=== PATIENT | female | born 1950 | race Caucasian/White ===

== ENCOUNTER → 2016-11-26 | Outpatient (CLI) | payer OTHER ==
[~2016-11-26] VITALS: Ht 160 cm; Wt 81.9 kg
[~2016-11-26] MED LIST: ASA81BEC PO; CALCIUM 600 +1 EAC1 PO; CENTRUM SILVER1 EAC6 PO; FELODIPINE 5 MG5 M1 PO; FISH OIL 1,001000 M2 PO; LEXAPRO 10 MG T10 M1 PO; MAGNESIUM WITH ZINC PO; MAXZIDE-25 MG1 EACH PO; METFORMIN HCL500 MG PO; ZOCOR20 MG PO
--- NOTE | ~2016-11-26 | HPC ---
[address] [address] PAIN MANAGEMENT CONSULTATION Name: NICOLASA SHIRLEY Room #: REG ALEXX Alayna#: [id number] Admission: 11/26/16 Attend Phys: Troy Gomes DO Discharge: Date of : 48 Report #: [id number] THIS REPORT FOR: //name// CC: Troy Cui NP DATE OF SERVICE: 11/26/2016 REFERRING PHYSICIAN: Ginny Cui NP CHIEF COMPLAINT: Low back pain and bilateral lower extremity pain. HISTORY OF PRESENT ILLNESS: As you know, the patient is a 66-year-old female who was referred to our service by her neurosurgery team in 2016 where she underwent epidural injections under fluoroscopic guidance to address lumbar radicular symptoms. She reports an 80% improvement in overall pain with previous injection. She returns today in followup visit with pain level of 9/10. States pain is exacerbated with walking, bending, lifting and improves with reclining and heat as well as epidural injections. She states the pain is burning, sharp and numbness in sensation. She returns today requesting a lumbar epidural injection under fluoroscopic guidance to build on success of the previous intervention. As you are aware, the patient suffers from near critical spinal stenosis of the lumbar spine contributing to the patient's symptomology. She returns today requesting epidural injection under fluoroscopic guidance in hopes of improving pain further. ALLERGIES: CODEINE. CURRENT MEDICATIONS: Aspirin 81 mg once a day, omega-3 fish oil 1 tab per day, magnesium with zinc ____ mg once a day, calcium carbonate 1 tab per day, multivitamin 1 tab per day, Lexapro 10 mg per day, simvastatin 20 mg per day, triamterene/hydrochlorothiazide 37.5/25 mg once a day, felodipine 5 mg per day, metformin 500 mg 2 tabs p.o. b.i.d. SOCIAL HISTORY: The patient denies tobacco, alcohol, IV or illicit drug use. She is unaccompanied today. IMAGING: No new imaging available. PHYSICAL EXAMINATION: VITAL SIGNS: Blood pressure 121/71, pulse 74, respiratory rate 16, unlabored. The patient is 98% on room air. Height 5 feet 3 inch tall. Current weight 180.6 pounds, BMI calculated 32. GENERAL: Well-developed, well-nourished, well-hydrated exogenously obese 66-year-old female appearing her stated age. She is [place] [address] PAIN MANAGEMENT CONSULTATION Name: NICOLASA SHIRLEY Room #: REG CLI [facility]#: [id number] Admission: 11/26/16 Attend Phys: Troy Gomes DO Discharge: Date of : 48 Report #: [id number] at approximately 9/10. HEENT: Normocephalic, atraumatic. Pupils equal, round, reactive to light. Extraocular muscles are intact. EXTREMITIES: Show no clubbing, no cyanosis, no edema. MUSCULOSKELETAL: Lower extremity strength is symmetrical of 5/5, intact to light touch from L1 through S2 dermatomes. Deep tendon reflexes are symmetrical at patella and Achilles, diminished bilaterally. Seated straight leg raising negative. Supine straight leg raising positive. Eddie's test is negative. ASSESSMENT: 1. Symptomatic lumbar radiculopathy. 2. 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 3. Displacement of lumbar intervertebral disk with radiculopathy. 4. Lumbosacral spondylosis with radiculopathy. 5. Lumbar degeneration. 6. Chronic intractable pain. PLAN: 1. The patient returns today in followup visit indicating good efficacy with the previous epidural injection. She reports near 80% improvement in overall pain that lasted for nearly 2 months. She returns today requesting next in a series of epidural injections to build on success of previous intervention. She has been advised the risks and benefits of the procedure, states she understood and wished to proceed. 2. No medication changes were provided at today's visit. The patient will continue current medical therapy as previously prescribed. 3. The patient to return to our clinic on an as-needed basis for the third and final in the 6-month series of injections. PROCEDURE NOTE DESCRIPTION OF PROCEDURE: Lumbar epidural injection under fluoroscopic guidance. This is the first procedure of the second series that the patient is undergoing. After obtaining written consent, the patient was taken back to the fluoroscopy suite, placed in a prone position with pillow under the abdomen to decrease lumbar lordosis. The skin overlying the lumbosacral area was then prepped and draped in aseptic fashion. The lumbar vertebral interspace was then identified by AP fluoroscopy. The skin and subcutaneous tissue overlying the target site of injection was anesthetized with 3 mL 1% lidocaine. A 20-gauge ____-inch Tuohy needle was then advanced under fluoroscopic guidance towards the epidural space using a left paramedian approach. The epidural space [facility] [address] [place] [address] PAIN MANAGEMENT CONSULTATION Name: NICOLASA SHIRLEY Room #: REG ALEXX Catalan#: [id number] Admission: 11/26/16 Attend Phys: Troy Gomes DO Discharge: Date of : 48 Report #: [id number] was identified using loss of resistance to air technique. After negative aspiration for heme or cerebrospinal fluid, a total of 1 mL of Omnipaque was injected. A lumbar epidurogram was confirmed using both AP and lateral fluoroscopy. After negative aspiration for heme or cerebrospinal fluid, 5 mL of solution containing 2 mL 40 mg per mL 80 mg total triamcinolone, 3 mL of lidocaine 1% was injected in increments. Contrast spread was noted in posterior epidural space. The needle was then retracted approximately half way and needle tract flushed with 1 mL of 1% lidocaine. Needle was then removed. There were no apparent sensory or motor deficits in the lower extremity following the procedure. A sterile bandage was placed over the injection site. The heart rate, pulse, oximetry and blood pressure were continuously monitored after the procedure. There were no apparent complications. The patient tolerated the procedure well and was carefully escorted to the recovery room in stable condition. There were no apparent complications. After meeting discharge criteria, the patient was then discharged home. By: [id number] Troy Gomes DO /nt
[2016-11-26 09:03] VITALS: BP 121/71
== END | disposition home or self-care (01) ==
LOC: PAIN 08-20 08:51
DX: M51.16 Intervertebral disc disorders with radiculopathy, lumbar region (principal); M47.27 Other spondylosis with radiculopathy, lumbosacral region; G89.29 Other chronic pain; M48.06 Spinal stenosis, lumbar region

== ENCOUNTER → 2017-02-12 | Outpatient (CLI) | payer OTHER ==
[~2017-02-12] VITALS: Ht 157.5 cm; Wt 81.8 kg
[~2017-02-12] MED LIST changes: +JANUVIA100 MG PO
--- NOTE | ~2017-02-12 | HPC ---
[facility] [place] [address] PAIN MANAGEMENT CONSULTATION Name: NICOLASA SHIRLEY Room #: REG ALEXX Kiana.#: [id number] Admission: 02/12/17 Attend Phys: Troy Gomes DO Discharge: Date of : 48 Report #: [id number] THIS REPORT FOR: //name// CC: Troy Cui NP DATE OF SERVICE: 02/12/2017 NURSE PRACTITIONER: Ginny Cui NP CHIEF COMPLAINT: Low back pain, bilateral lower extremity pain. HISTORY OF PRESENT ILLNESS: As you know, the patient is a 66-year-old female referred to our service by her neurosurgery team back in 2015 where she underwent epidural injection under fluoroscopic guidance to address lumbar radicular symptoms. She reported an 80% improvement in overall pain with previous injection. She returns today with pain level of 7/10, states her pain is constant, burning and sharp in sensation, exacerbated with walking, bending, lifting, improves with recliners, heat and cold compresses and epidural injections. She indicates no new injury, no new trauma that may have led to progression of symptoms. She states her symptoms are very similar to previous evaluations. She has returned requesting epidural injection. ALLERGIES: CODEINE. CURRENT MEDICATIONS: Metformin, felodipine, triamterene/hydrochlorothiazide, simvastatin, Lexapro, multivitamin, calcium carbonate, magnesium with zinc, aspirin, Januvia. SOCIAL HISTORY: The patient denies tobacco, alcohol, IV or illicit drug use. She is unaccompanied today. IMAGING: No imaging available. PHYSICAL EXAMINATION: VITAL SIGNS: Blood pressure 137/63, pulse 76, respiratory rate 16, unlabored. The patient is 98% on room air, height 5 feet 2 inches tall, weight 180.3 pounds, BMI calculated 33.0. GENERAL: Well developed, well nourished, well-hydrated exogenously obese 66-year-old female appearing her stated age, placing pain score today 7/10. HEENT: Normocephalic, atraumatic. Pupils equal, round, reactive to light. Extraocular muscles are intact. EXTREMITIES: Show no clubbing, no cyanosis, no edema. MUSCULOSKELETAL: Lower extremity strength remains symmetrical 5/5, intact to light touch from L1 through S2 dermatomes. Seated straight leg raising [facility] [address] [place] [address] PAIN MANAGEMENT CONSULTATION Name: NICOLASA SHIRLEY Room #: REG [facility]#: [id number] Admission: 02/12/17 Attend Phys: Troy Gomse DO Discharge: Date of : 48 Report #: [id number] negative. Supine straight leg raising positive. Eddie test negative. Modified Gaenslen's positive for axial low back pain. Ankle clonus negative. Babinski is negative. ASSESSMENT: 1. Symptomatic lumbar radiculopathy. 2. 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 3. Displacement of lumbar intervertebral disk with radiculopathy. 4. Lumbosacral spondylosis with radiculopathy. 5. Lumbar facet arthropathy. 6. Lumbar degeneration. 7. Chronic intractable pain. PLAN: 1. The patient returns today in followup visit requesting to undergo next in the series of epidural injections under fluoroscopic guidance. The patient has done very well with previous epidural injections. She is hopeful to see similar improvement today. She has been advised of the risks and the benefits of this procedure. These risks include but are not necessarily limited to bleeding, bruising, infection, worsening pain, no relief of pain, also risk of temporary or permanent muscle weakness, temporary or permanent nerve damage, possible paralysis and . The patient states understood and wished to proceed. 2. No medication changes were made at today's visit. The patient will continue current medical therapy as previously prescribed. 3. The patient will return to our clinic on an as needed basis for possible next in the series of epidural injections. PROCEDURE NOTE DESCRIPTION OF PROCEDURE: Lumbar epidural steroid injection under fluoroscopic guidance. This is the second procedure of the second series that the patient is undergoing. After obtaining written consent, the patient was taken back to the fluoroscopy suite, placed in a prone position with pillow under the abdomen to decrease lumbar lordosis. The skin overlying the lumbosacral area was then prepped and draped in aseptic fashion. The lumbar vertebral interspace was then identified by AP fluoroscopy. The skin and subcutaneous tissue overlying the target site of injection was anesthetized with 3 mL 1% lidocaine. A(n) 20-gauge 3-1/2 inch Tuohy needle was then advanced under fluoroscopic guidance towards the epidural space using a left paramedian approach. The epidural space was identified using loss of resistance to air technique. After negative aspiration for heme or cerebrospinal fluid, a total of 1 mL of [address] [address] PAIN MANAGEMENT CONSULTATION Name: NICOLASA SHIRLEY Room #: REG ALEXX Catalan#: [id number] Admission: 02/12/17 Attend Phys: Troy Gomes DO Discharge: Date of : 48 Report #: [id number] Omnipaque was injected. A lumbar epidurogram was confirmed using both AP and lateral fluoroscopy. After negative aspiration for heme or cerebrospinal fluid, 5 mL of a solution containing 2 mL 40 mg per mL, 80 mg total triamcinolone 3 mL of lidocaine 1% was injected in increments. Contrast spread was noted post epidural space. The needle was then retracted approximately half way and needle tract flushed with 1 mL of 1% lidocaine. Needle was then removed. There were no apparent sensory or motor deficits in the lower extremity following the procedure. A sterile bandage was placed over the injection site. The heart rate, pulse, oximetry and blood pressure were continuously monitored after the procedure. There were no apparent complications. The patient tolerated the procedure well and was carefully escorted to the recovery room in stable condition. There were no apparent complications. After meeting discharge criteria, the patient was then discharged home. By: [id number] Troy Gomes DO /nt
[2017-02-12 08:09] VITALS: BP 137/63
== END ==
LOC: PAIN 06:48
DX: M51.16 Intervertebral disc disorders with radiculopathy, lumbar region (principal); M47.26 Other spondylosis with radiculopathy, lumbar region; G89.29 Other chronic pain; M48.06 Spinal stenosis, lumbar region; Z79.899 Other long term (current) drug therapy; Z88.8 Allergy status to other drugs, medicaments and biological substances

== ENCOUNTER → 2017-06-10 | Outpatient (CLI) | payer OTHER ==
[~2017-06-10] VITALS: Ht 157.5 cm; Wt 83.1 kg
[~2017-06-10] MED LIST changes: +LANTUS SUBQ
--- NOTE | ~2017-06-10 | HPC ---
[facility] [place] [address] PAIN MANAGEMENT CONSULTATION Name: NICOLASA SHIRLEY Room #: REG CLSolange Alayna#: [id number] Admission: 06/10/17 Attend Phys: Troy Gomes DO Discharge: Date of : 48 Report #: [id number] THIS REPORT FOR: //name// CC: Troy Garcia DATE OF SERVICE: 06/10/2017 CHIEF COMPLAINT: Low back pain, bilateral lower extremity pain and paresthesias. HISTORY OF PRESENT ILLNESS: As you know, the patient is a very pleasant 67-year-old female who returns today in followup visit per the request of her neurosurgery team to undergo next in the series of epidural injections under fluoroscopic guidance. The patient reports about 50% improvement in overall pain with the last injection, this lasted for about 6-8 weeks. She returns today in followup visit for next in the series of epidural injections. She denies new injury, new trauma that may have led to progression of symptoms. She denies any changes in her medical history since our last visit. ALLERGIES: CODEINE. CURRENT MEDICATIONS: Lantus, aspirin, omega 3 fish oil, magnesium, calcium carbonate, multivitamin, escitalopram, simvastatin, triamterene/hydrochlorothiazide, felodipine, and metformin. SOCIAL HISTORY: The patient denies tobacco, alcohol, IV or illicit drug use. She is unaccompanied today. IMAGING: No new imaging available. PHYSICAL EXAMINATION: VITAL SIGNS: Blood pressure 120/65, pulse 66 and respiratory rate 20, unlabored. The patient is 97% on room air, height 5 feet 2 inches tall, weight 183.2 pounds, BMI calculated at 33.5. GENERAL: Well developed, well nourished, well-hydrated exogenously obese 67-year-old female appearing stated age, placing current pain score 9/10. HEENT: Normocephalic, atraumatic. Pupils equal, round, reactive to light. Extraocular muscles are intact. EXTREMITIES: Show no clubbing, no cyanosis, no edema. MUSCULOSKELETAL: Seated straight leg raising negative. Supine straight leg raising positive. Eddie test negative. Modified Gaenslen's positive for axial low back pain. Gait mildly antalgic. Muscle bulk and tone equal and symmetrical in lower extremities. ASSESSMENT: [address] [address] PAIN MANAGEMENT CONSULTATION Name: NICOLASA SHIRLEY Room #: REG ALEXX Catalan#: [id number] Admission: 06/10/17 Attend Phys: Troy Gomes DO Discharge: Date of : 48 Report #: [id number] 1. Symptomatic lumbar radiculopathy. 2. Near critical spinal stenosis of lumbar spine. 3. Displacement of lumbar intervertebral disk with radiculopathy. 4. Lumbosacral spondylosis with radiculopathy. 5. Facet arthropathy of the lower lumbar spine. 6. Neural foraminal stenosis of lumbar spine. 7. Lumbar degeneration. 8. Chronic intractable pain. PLAN: 1. The patient returns today in followup visit having noted approximately 50% improvement in overall pain lasting for nearly 6-8 weeks. She returns today in followup visit per the request of her neurosurgery team to undergo the next in a series of epidural injections. The patient and I did discuss at length today the risks and benefits, states she understood and wished to proceed. 2. The patient is to return to see her neurosurgery team at her earliest convenience. The patient is concerned that 50% improvement in symptoms with epidural injections is not significant enough for her to continue these type of treatments. I have recommended that if she wishes to move to more aggressive treatment to contact her neurosurgery physician and be seen in return consultation. The patient does have near critical stenosis and will likely need decompression and fusion. We will be available to see her back in followup visit if requested to try the next in the series of epidural injections. PROCEDURE NOTE DESCRIPTION OF PROCEDURE: L5-S1 left paramedian epidural steroid injection under fluoroscopic guidance. This is the third procedure of the second series that the patient is undergoing. After obtaining written consent, the patient was taken back to the fluoroscopy suite, placed in a prone position with pillow under the abdomen to decrease lumbar lordosis. The skin overlying the lumbosacral area was then prepped and draped in aseptic fashion. The L5-S1 vertebral interspace was then identified by AP fluoroscopy. The skin and subcutaneous tissue overlying the target site of injection was anesthetized with 3 mL 1% lidocaine. A 20-gauge Tuohy needle was then advanced under fluoroscopic guidance towards the epidural space using a left paramedian approach. The epidural space was identified using loss of resistance to air technique. After negative aspiration for heme or cerebrospinal fluid, a total of 1 mL of Omnipaque was injected. A lumbar epidurogram was confirmed using both AP and lateral fluoroscopy. After negative aspiration for heme or cerebrospinal fluid, 5 mL of a solution containing 2 mL 40 mg per mL, 80 mg total triamcinolone, 3 mL of lidocaine 1% was injected in increments. Contrast spread was noted post epidural space. The [address] [address] PAIN MANAGEMENT CONSULTATION Name: NICOLASA SHIRLEY Room #: REG ALEXX BrunoMaryanne#: [id number] Admission: 06/10/17 Attend Phys: Troy Gomes DO Discharge: Date of : 48 Report #: [id number] needle was then retracted approximately half way and needle tract flushed with 1 mL of 1% lidocaine. Needle was then removed. There were no apparent sensory or motor deficits in the lower extremity following the procedure. A sterile bandage was placed over the injection site. The heart rate, pulse, oximetry and blood pressure were continuously monitored after the procedure. There were no complications. The patient tolerated the procedure well and was carefully escorted to the recovery room in stable condition. There were no apparent complications. After meeting discharge criteria, the patient was then discharged home. By: [id number] Troy Gomes DO /nt
[2017-06-10 08:39] VITALS: BP 128/65
== END | disposition home or self-care (01) ==
LOC: PAIN 07:10
DX: M51.16 Intervertebral disc disorders with radiculopathy, lumbar region (principal); M48.061 Spinal stenosis, lumbar region without neurogenic claudication; M47.27 Other spondylosis with radiculopathy, lumbosacral region; M46.96 Unspecified inflammatory spondylopathy, lumbar region; G89.29 Other chronic pain; Z88.6 Allergy status to analgesic agent; Z79.82 Long term (current) use of aspirin; Z79.4 Long term (current) use of insulin; Z79.899 Other long term (current) drug therapy; Z98.890 Other specified postprocedural states